=== PATIENT | female | born 1975 | race African-American/Black ===

== ENCOUNTER 2018-08-23 20:28 | Emergency (ER) | payer SELFPAY, OTHER ==
[2018-08-24] MEDS: predniSONE 20 MG TAB PO (00:06)
[2018-08-24] MEDS: PROMETHAZINE/CODEINE 5ML CUP PO (00:06)
== END 2018-08-24 00:54 | disposition home or self-care (01) ==
LOC: FTE 20:28
DX: J42 Unspecified chronic bronchitis (principal)
CPT/HCPCS: 99283